=== PATIENT | female | born 1985 | race African-American/Black ===

== ENCOUNTER 2022-01-11 08:38 | Emergency (ER) | payer OTHER, SELFPAY ==
--- NOTE | ~2022-01-11 | CT_ITS ---
EXAMINATION: TEMPORAL BONE CT SCAN CLINICAL INFORMATION: COMPARISON: Left mastoid tenderness with upper respiratory infection. TECHNIQUE: A noncontrast axial CT scan of the temporal bones was obtained. Multiplanar reformatted images were generated at the technologist workstation. This CT examination was performed using dose optimization techniques as appropriate, variously including the following: *Automated exposure control *Adjustment of mA and/or kV according to patient size (this includes techniques or standardized protocols for targeted exams where dose is matched to indication/reason for exam; i.e. extremities or head) *Use of iterative reconstruction technique DLP: 235 mGy-cm. FINDINGS: Right: The external auditory canal is normal and there is no abnormal thickening of the tympanic membrane. The middle ear cavity is well-aerated. The ossicular chain is intact. The mastoid air cells are well aerated. The labyrinthine structures are normal. Mineralization within the otic capsule is preserved. The internal auditory canal is unremarkable. The temporomandibular joint is intact. Left: There is thickening of the left auricle and the soft tissues subjacent to it. There are no discrete fluid collections. The mastoid air cells are well aerated. There is no abnormal thickening of the tympanic membrane. The middle ear cavity is well-aerated. The ossicular chain is intact. The labyrinthine structures are normal. Mineralization within the otic capsule is preserved. The internal auditory canal is unremarkable. The temporomandibular joint is intact. Other: The visualized parotid glands are unremarkable. The electronics teacher spaces are symmetric. Limited visualization of the intracranial structures reveals no abnormal findings. There is mucoperiosteal thickening of the bilateral maxillary sinuses. The soft tissue fullness in the bilateral anterior nasal cavities bilaterally. The nasal septum is deviated to the right. CT/CT mastoid IMPRESSION: 1. There is thickening of the left auricle and soft tissues subjacent to it, consistent with cellulitis. There are no discrete fluid collections. The adjacent mastoid air cells are well-aerated. 2. There is bilateral maxillary sinus mucoperiosteal thickening. There is soft tissue fullness in the anterior nasal cavities bilaterally which can be correlated clinically. 3. The middle and internal ear structures appear normal.
[2022-01-11 08:40] VITALS: BP 147/85; PULSE 102; RESP 20; TEMP 36.6; O2SAT 98; BMI 32.3
[2022-01-11 09:11] LABS: Strep A Nucleic Acid Negative (Negative)
[2022-01-11 09:34] LABS: Influenza A PCR NEGATIVE (Negative); Influenza B PCR NEGATIVE (Negative); Resp Syncy Virus RNA Qual PCR NEGATIVE (Negative); SARS COV2 PCR INHOUSE NEGATIVE (Negative)
--- NOTE | 2022-01-11 09:43 | ED.URI ---
HPI - URI/Sore Throat General Chief Complaint: Upper Respiratory Symptoms Stated Complaint: blocked ears Time Seen by Provider: 01/11/22 09:12 Source: patient Mode of arrival: ambulatory Limitations: no limitations History of Present Illness HPI Narrative: 36-year-old female complaining of nasal congestion bilateral ear pain for several months. Has not seen her primary or ENT. Has been using [id number] nasal sprays. No fevers, shaking chills. No headaches MD elicited complaint: rhinorrhea, nasal congestion and sinus pain Onset (ago): month(s) (4) Consistency: constant Severity: moderate Description of mucous: watery and purulent Exacerbating factors: nothing Relieving factors: nothing Related Data Previous Rx's Medication Instructions Recorded doxycycline hyclate 100 mg tablet 100 mg PO BID 14 days #28 tabs 01/11/22 Allergies Allergy/AdvReac Type Severity Reaction Status Date / Time latex [LATEX] Allergy Unknown RASH AND Unverified 10/29/19 18:50 HIVES penicillin G [PENICILLIN G] Allergy Unknown HIVES AND Unverified 10/29/19 18:50 RASH Review of Systems Constitutional: Constitutional: Denies chills, Denies fever(s) and Denies headache(s) Eyes: Eyes: Denies blurry vision and Denies diplopia ENT: Denies vertigo, Denies dizziness, Reports otalgia, Denies headache(s), Denies epistaxis, Reports post nasal drip, Reports sinus pain and Reports sinus pressure Cardiovascular: Cardiovascular: Denies chest pain, Denies syncope, Denies lightheadedness and Denies Loss of Consciousness Respiratory: Respiratory: Denies cough and Denies wheezing Neurologic: Denies Abnormal speech present, Denies vertigo, Denies dizziness, Denies syncope and Denies headache(s) Allergic/Immunologic: Allergic/Immunologic: Denies wheezing PMFSH Social History Social History Advance Directives: No Physical Exam Vital Signs: Vital Signs: Last Vital Signs Temp 97.9 F 01/11/22 08:40 Pulse 102 H 01/11/22 08:40 Resp 20 01/11/22 08:40 BP 147/85 H 01/11/22 08:40 Pulse Ox 98 01/11/22 08:40 O2 Del Method 01/11/22 08:40 BMI result Body Mass Index 32.3 Vital signs noted. Slight tachycardia with slight hypertension Const: General: cooperative, comfortable, alert, awake and Physically active; No ill appearing Nutritional Appearance: average body habitus Orientation/consciousness: patient oriented x3 HEENT: Head: Yes normocephalic and Yes atraumatic Ears: external ears normal, TM's normal bilaterally, mastoids abnormal, mastoid abnormal (left tenderness) and no periauricular adenopathy General nose exam: Normal external nose present, Abnormal mucous membranes and turbinates present boggy and erythematous and Nasal discharge present Face and sinus: Yes normal facial exam, Yes sinuses nontender and Yes face symmetric Mouth: Normal oral and palatal mucosa present and moist mucous membranes Throat: Yes posterior oropharynx normal and Yes tonsils normal Eyes: Conjunctivae: conjunctivae normal Sclerae: sclerae normal Neck: Neck: Yes normal visual inspection, Yes full ROM, No lymphadenopathy and No tender Resp: Effort & Inspection: normal respiratory effort and no cough Skin: General skin exam: no rashes or lesions noted and no pallor Neuro: General: patient oriented x3 and CN's II-XI intact bilaterally Speech: No Abnormal speech present MDM - URI/Sore Throat MDM Narrative Medical decision making narrative: 36-year-old female with ENT complaints over the past several months. Physical exam noted significant congestion in the nasal mucosa. Ear exam essentially normal, there was some mild tenderness over the left mastoid process which prompted a CT scan for evaluation. Interpretation by radiology as documented below. There is no appreciable cellulitis on physical exam, however, findings on CT are somewhat concerning that there may be the beginnings of cellulitis. For that reason, the patient will be started on antibiotics. She is encouraged to seek ENT follow-up for her other complaints Medical Records Attestation: I reviewed the patient's medical records. Lab Data Labs: Lab Results 01/11/22 01/11/22 Range/Units 08:46 08:46 Influenza Type A (PCR) NEGATIVE (Negative) Influenza Type B (PCR) NEGATIVE (Negative) RSV RNA Qual (PCR) NEGATIVE (Negative) SARS-CoV-2 RNA (RT-PCR) NEGATIVE (Negative) S. pyogenes GrpA TOMMY Negative (Negative) Imaging Data CT of the mastoids: Radiologist's impression: IMPRESSION: 1. There is thickening of the left auricle and soft tissues subjacent to it, consistent with cellulitis. There are no discrete fluid collections. The adjacent mastoid air cells are well-aerated. ? 2. There is bilateral maxillary sinus mucoperiosteal thickening. There is soft tissue fullness in the anterior nasal cavities bilaterally which can be correlated clinically. ? 3. The middle and internal ear structures appear normal Discharge Plan Discharge Clinical Impression: Cellulitis and abscess of head, Upper respiratory infection, Sinusitis Patient Disposition: Home, Self-Care Instructions: Cellulitis (ED), Sinusitis (ED) Additional Instructions: Typically sinus infections are not treated with antibiotics, because they are mostly viral. However, since your symptoms have been present for several weeks if not longer, and because you also have a mild cellulitis (skin infection) behind the left ear, you will be started on antibiotics. Additionally, you should follow up with the ENT doctor who you saw earlier this year. Prescriptions: New doxycycline hyclate 100 mg tablet 100 mg PO BID 14 Days Qty: 28 0RF Discharge Date/Time: 01/11/22 11:56
== END 2022-01-11 11:56 | disposition left against medical advice (07) ==
PROVIDERS: Emergency Provider Emergency Medicine
DX: J06.9 Acute upper respiratory infection, unspecified (principal); H60.02 Abscess of left external ear; H60.12 Cellulitis of left external ear; J32.8 Other chronic sinusitis; H92.03 Otalgia, bilateral; R00.0 Tachycardia, unspecified; Z20.822 Contact with and (suspected) exposure to COVID-19
CPT/HCPCS: 0241U; 70481; 87651; 99281; 99284